=== PATIENT | female | born 1960 | race African-American/Black ===

== ENCOUNTER 2020-11-22 19:01 | Emergency (ER) | payer OTHER ==
[~2020-11-22] VITALS: Ht 151.1 cm; Wt 74.5 kg
[~2020-11-22 19:01] MED LIST: ALBU2.5V8 IH; AMLO-187 PO; CHOL10003 PO; CYAN50TA PO; METO-269 PO; OMEG1CAP27 PO; OMEP40CA45 PO
[2020-11-22 19:54] LABS: BASO # 0.1 x10^3/uL (0.0-0.2); BASO % 1 % (0-3); EOS # 0.1 x10^3/uL (0.0-0.7); EOS % 1 % (0-3); HEMATOCRIT 39.6 % (36.0-47.0); HEMOGLOBIN 13.5 g/dL (12.0-15.5); LYMPH # 2.2 x10^3/uL (1.0-4.8); LYMPH % 21 % (24-48); MEAN CORPUSCULAR HEMOGLOBIN 28 pg (25-35); MEAN CORPUSCULAR HGB CONC 34 g/dL (31-37); MEAN CORPUSCULAR VOLUME 82 fL (79-100); MONO # 0.7 x10^3/uL (0.0-1.1); MONO % 7 % (0-9); NEUT # 7.4 x10^3/uL (1.8-7.7); NEUT % 70 % (31-73); PLATELET COUNT 366 x10^3/uL (140-400); RED BLOOD COUNT 4.81 x10^6/uL (3.50-5.40); WHITE BLOOD COUNT 10.5 x10^3/uL (4.0-11.0)
[2020-11-22 19:57] VITALS: BP 143/65
[2020-11-22 19:57] LABS: BILIRUBIN,URINE NEGATIVE (NEG); CLARITY,URINE CLEAR; COLOR,URINE YELLOW; NITRITE,URINE NEGATIVE (NEG); PH,URINE 6.5 (<5.0-8.0); PROTEIN,URINE NEGATIVE (NEG-TRACE)
[2020-11-22 20:01] LABS: CALCIUM 9.2 mg/dL (8.5-10.1); CREATININE 1.2 mg/dL (0.6-1.0); GFR 55.1; POTASSIUM 3.9 mmol/L (3.5-5.1)
--- NOTE | 2020-11-22 20:02 | PHYS DOC ---
Past Medical History Past Medical History: Hypertension Additional Past Medical Histor: COVID VACCINATED SEPTEMBER 2020 MODERNA Past Surgical History: No Surgical History Smoking Status: Never Smoker Alcohol Use: Occasionally General Adult EDM: Chief Complaint: ABDOMINAL PAIN HPI: HPI: Patient is a 60 year [id number]-jwv female presents with a chief complaint of right lower quadrant abdominal pain. Patient states abdominal pain started yesterday. Patient's pain is located in the right lower quadrant without radiation. Patient states movement makes pain worse and proves all remaining still. Patient states her pain is currently a 4 out of 10. She has associated nausea but has not vomited. Patient states she has not had a bowel movement since Thursday. Patient has taken hsyu-elk-mfxoemm MiraLAX with no relief. Review of Systems: Review of Systems: Review of systems: Constitutional symptoms- No fever, no chills. Eyes- No Discharge, No Visual Loss Respiratory symptoms- No shortness of breath, No wheezing, No Dyspnea on Exertion Cardiovascular Systems; No chest pain, No Palpitations, No syncope Gastrointestinal symptoms: Positive abdominal pain, Positive nausea, no vomiting or diarrhea. Positive constipation Genitourinary symptoms: No dysuria. Musculoskeletal symptoms: No back pain No extremity pain. NEUROLOGICAL Symptoms: No headache, no generalized weakness; No focal Weakness Heart Score: C/O Chest Pain: N/A Risk Factors: Risk Factors: DM, Current or recent (<one month) smoker, HTN, HLP, family history of CAD, obesity. Risk Scores: Score 0 - 3: 2.5% MACE over next 6 weeks - Discharge Home Score 4 - 6: 20.3% MACE over next 6 weeks - Admit for Clinical Observation Score 7 - 10: 72.7% MACE over next 6 weeks - Early Invasive Strategies Allergies: Allergies: Allergies Coded Allergies Type Severity Reaction Last Updated Verified Penicillins Allergy Severe Anaphylaxis 11/22/20 Yes Sulfa (Sulfonamide Antibiotics) Allergy Severe Anaphylaxis 11/22/20 Yes iodine Allergy Severe Anaphylaxis 11/22/20 Yes shellfish derived Allergy Severe Anaphylaxis 11/22/20 Yes latex Allergy Intermediate Rash 11/22/20 Yes vilanterol Allergy Intermediate Hives 11/22/20 Yes Physical Exam: PE: General: alert, no acute distress. Skin: warm, dry and intact. Head:: Normocephalic, atraumatic. Neck: Trachea midline. Eyes: EOMI, Normal conjunctiva, No drainage CARDIOVASCULAR: Regular rate and rhythm RESPIRATORY: No respiratory distress Back: Full range of motion. MUSCULOSKELETAL: Full range of motion of bilateral upper and lower extremities. GASTROINTESTINAL: Abdomen soft tenderness to palpation right lower quadrant NEUROLOGICAL: Alert and noted to person, place and time. No neurological deficits observed Psychiatric: Cooperative. Normal judgment Current Patient Data: Vital Signs: Vital Signs Date Time Temp Pulse Resp B/P (MAP) Pulse Ox O2 Delivery O2 Flow Rate FiO2 11/22/20 19:30 98.4 71 16 153/70 (97) Room Air 98.4 EKG: EKG: [] Radiology/Procedures: Radiology/Procedures: [] Impression: FINDINGS: Partially visualized heart and lung bases unremarkable. 1 cm round hypodense lesion in the lateral left hepatic lobe, compatible with a benign cyst. Liver, pancreas, spleen, and adrenal glands unremarkable. Punctate nonobstructive right renal calculus. Minimally filled urinary bladder suboptimally evaluated. No dilated bowel. Mild stool throughout the colon. Appendix within normal limits. Arterial atherosclerotic calcification without aneurysm. Thoracolumbar degenerative disc disease. IMPRESSION: No evidence of acute abdominopelvic abnormality. Course & Med Decision Making: Course & Med Decision Making Pertinent Labs and Imaging studies reviewed. (See chart for details) [] Was evaluated for chief complaint. Work-up consisted of laboratory analysis and radiologic imaging. Results reviewed and discussed with patient and family. CT imaging no acute abnormality. Patient's urine consistent with urinary tract infection. Treatment in the ER included Rocephin. Patient will be discharged home with Macrobid and Pyridium. Patient to continue MiraLAX Dragon Disclaimer: Dragon Disclaimer: This electronic medical record was generated, in whole or in part, using a voice recognition dictation system. Departure Departure Impression: Primary Impression: Abdominal pain Additional Impression: Urinary tract infection Disposition: HOME / SELF CARE / HOMELESS Condition: STABLE Referrals: ASHOK BERNAL MD (PCP) Patient Instructions: Abdominal Pain, Urinary Tract Infection Scripts Phenazopyridine Hcl (PYRIDIUM) 100 Mg Tablet 1 TAB PO TID for urinary discomfort for 3 Days, #9 TAB 0 Refills Prov: OLIVIER GILLESPIE DO 11/22/20 Nitrofurantoin Macrocrystal (MACRODANTIN) 100 Mg Capsule 1 CAP PO BID for 10 Days, #20 CAP 0 Refills Prov: OLIVIER GILLESPIE DO 11/22/20 OLIVIER GILLESPIE DO November 22, 2020 20:02
[2020-11-22 20:07] LABS: ALBUMIN 4.3 g/dL (3.4-5.0); ALBUMIN/GLOBULIN RATIO 1.1 (1.0-1.7); TOTAL BILIRUBIN 0.4 mg/dL (0.2-1.0); TOTAL PROTEIN 8.3 g/dL (6.4-8.2)
[2020-11-22] MEDS ORDERED: IV NORMAL SALINE 1000ML BAG 1,000 ML IV ONE (20:15)
[2020-11-22] MEDS ORDERED: MORPHINE SULFATE 2 MG/ML VIAL. IV ONE (20:15)
[2020-11-22] MEDS ORDERED: ONDANSETRON PF 4 MG/2 ML VIAL. IVP ONE (20:15)
[2020-11-22 20:21] LABS: BACTERIA,URINE 0 /HPF (0-FEW); RBC,URINE 0 /HPF (0-2); WBC,URINE 20-40 /HPF (0-4)
--- NOTE | 2020-11-22 20:39 | RAD ---
EXAMINATION: CT ABDOMEN+PELVIS WO (CT ABDOMEN/PELVIS WITHOUT IV CONTRAST) CLINICAL HISTORY: Right lower quadrant abdominal pain TECHNIQUE: Non-IV contrast imaging of the abdomen and pelvis was performed using standard technique, scanning from just above the dome of the diaphragm to the symphysis pubis. Unenhanced imaging is main ited for the evaluation of some intra-abdominal and pelvic pathology. CT Dose Reduction Employed: One or more of the following individualized dose reduction techniques wer e utilized for this examination: 1. Automated exposure control 2. Adjustment of the mA and/or kV ac cording to patient size 3. Use of iterative reconstruction technique. COMPARISON: None FINDINGS: Partially visualized heart and lung bases unremarkable. 1 cm round hypodense lesion in the lateral left hepatic lobe, compatible with a benign cyst. Liver, p ancreas, spleen, and adrenal glands unremarkable. Punctate nonobstructive right renal calculus. Minimally filled urinary bladder suboptimally evaluated. No dilated bowel. Mild stool throughout the colon. Appendix within normal limits. Arterial atherosclerotic calcification without aneurysm. Thoracolumbar degenerative disc disease. IMPRESSION: No evidence of acute abdominopelvic abnormality. Electronically signed by: Clive Downey DO (11/22/2020 8:37 PM) [facility]
[2020-11-22] MEDS ORDERED: NITR100C63 PO (20:57)
[2020-11-22] MEDS ORDERED: PHEN100T82 PO (20:57)
[2020-11-22] MEDS ORDERED: cefTRIAXone IV Push 1 GM VIAL. IVP ONE (21:30)
== END 2020-11-22 21:11 | disposition home or self-care (01) ==
LOC: ER 19:01
DX: N39.0 Urinary tract infection, site not specified (principal); K59.00 Constipation, unspecified; I10 Essential (primary) hypertension; Z88.0 Allergy status to penicillin; Z88.2 Allergy status to sulfonamides; Z88.8 Allergy status to other drugs, medicaments and biological substances
CPT/HCPCS: 36415; 74176; 80053; 81001; 83690; 85025; 87086; 96361; 96374; 96375; 99284; J0696; J2270; J2405; J7030

== ENCOUNTER → 2021-01-17 | Outpatient (CLI) | payer OTHER ==
[~2021-01-17] MED LIST changes: +NITR100C63 PO; -OMEP40CA45 PO; +OMEP40CA7 PO; +PHEN100T82 PO; +REGADENOSON 0.4 MG/5 ML DISP.SYRIN. IV ONE
--- NOTE | 2021-01-17 16:21 | RAD ---
MR#: [id number] Date of Study: 01/17/2021 Ordering Physician: ASHOK BERNAL, Referring Physician: [place] HARTLEY Tech: CHARITO Garcia, SHAYLA (R) (N) APPROVED REPORT Test Type: Pharmacological Stress Nurse/Tech: Jeanne Snyder R.N. Test Indications: SOB Cardiac History: told as a child that her aorta was narrow?, htn Medications: see ehr Medical History: see ehr Resting ECG: sr see printout Resting Heart Rate: 72 bpm Resting Blood Pressure: 145/71mmHg Pretest Chest Pain: No chest pain Nurse/Tech Notes lungs cta, strong radial pulse Consent: The procedure was explained to the patient in lay terms. Informed consent was witnessed. Narendra eout was entered into [employer]. History and Stress Test performed by RT Terrie Camilo) (N) Pharm. Details Pharmacologic stress testing was performed using 0.4mg per 5ml of regadenoson given intravenously ove r 7-10 seconds. Stress Symptoms No chest pain or symptoms. POST EXERCISE Reason for Termination: Infusion complete Target HR: No Max HR: 108 bpm Max Blood Pressure: 141/74mmHg Chest Pain: No. Arrhythmia: No. ST Change: No. INTERPRETATION Stress EKG Conclusion: Baseline EKG showed sinus rhythm. No ischemic changes at peak stress. No arr hythmias. Imaging Protocol IMAGE PROTOCOL: Rest Tc-99m/stress Tc-99m 1 day Rest: Stress: Viability: Radiopharm.Tc99m [id number] Sestamibi Dose10.1mCi 32.1mCi Img Date 01/17/2021 01/17/2021 Inj-Img [id number]. 60min. Rest Admin Site:IV - Left AntecubitalAdministrator:CHARITO Garcia, SHAYLA (R)(N) Stress Admin Site: IV - Left AntecubitalAdministrator: RT Terrie Camilo)(N) STRESS DATA End Diast. Vol.58.0mlAv. Heart Rate76.0bpm End Syst. Vol.4.0mlCO Index BSA0.0L/min Myocardial Paxl867.0gEject. Qldrkere77.0% Stress Rates Pk. Fill Rate3.07EDV/secLVtime Pk. Fill 103.19msec Pk. Empty Rate5.35ESV/secLVtime Pk. Hejlj478.84msec 1/3 Pk. Fill2.19EDV/sec Stress Scores Regional WT0.00Summed WT0.00 Regional WM0.00Summed WM0.00 Study quality was good. Left Ventricular size was Normal at Rest and Stress. Lung uptake was . Left Ventricular ejection fraction is 89%. The rest and stress images show normal perfusion, normal contraction and thickening. LV Perf. Quant 17 Seg. SSS0.00 17 Seg. SRS11.00 17 Seg. SDS0.00 Stress Defect Extent (% LAD)0.00Rest Defect Extent (% LAD)22.50Rev. Defect Extent (% LAD)0.00 Stress Defect Extent (% LCX) 0.00Rest Defect Extent (% LCX)37.50Rev. Defect Extent (% LCX)0.00 Stress Defect Extent (% RCA)0.00Rest Defect Extent (% RCA)14.40Rev. Defect Extent (% RCA)0.00 Stress Defect Extent (% EMILIA)0.00Rest Defect Extent (% EMILIA)23.70Rev. Defect Extent (% EMILIA)0.00 Conclusion 1. Regadenoson cardioisotope stress test did not show any evidence of ischemia or infarct. 2. Normal left ventricular systolic function with ejection fraction calculated at 89%. 3. Low risk for cardiac events. Signed by : Farooq Carr, Electronically Approved : 01/17/2021 16:21:40
== END ==
LOC: NM 09:04
PROVIDERS: ATTEND Family Medicine
DX: R06.02 Shortness of breath (principal); K30 Functional dyspepsia
CPT/HCPCS: 78452; 93017; A9500; J2785